=== PATIENT | female | born 1950 | race Caucasian/White ===

== ENCOUNTER 2017-11-16 09:25 | Day surgery (SDC) | payer MEDICARE ==
[~2017-11-16 09:25] MED LIST: ACETAMINOPHEN 325 MG TAB PO; PHENYLEPHRINE HCL 10 % OPHTH. SOL 5ML OS; PROPARACAINE 0.5% OPHTH SOL 15ML OS
[2017-11-16] MEDS: LIDOCAINE 3.5 % 1ML OPHTH TOPICAL GEL OU (09:50)
[2017-11-16] MEDS: PHENYLEPHRINE 2.5% OPHTH SOL 2ML OS (09:55)
[2017-11-16] MEDS: OFLOXACIN 0.3 % (OCUFLOX) OPTH SOL 5ML OS (09:55)
[2017-11-16] MEDS: TROPICAMIDE 1% OPHTH SOLN 2ML OS (09:55)
[2017-11-16] MEDS: CYCLOPENTOLATE 2% OPHTH SOLN 2ML BTL OS (09:55)
[2017-11-16] MEDS ORDERED: MIDAZOLAM INJ 2 MG/2 ML VIAL (J2250) As Ordered (11:04)
[2017-11-16] MEDS ORDERED: fentaNYL 100 MCG/2 ML INJECTION (J3010) As Ordered (11:04)
[2017-11-16] MEDS: HEALON DUET (HEALON 10MG/ML 0.55ML & HEALON ENDOCOAT 30MG/ML 0.85ML) As Ordered (11:05)
[2017-11-16] MEDS: LIDOCAINE 1% SDV 5 ML VIAL As Ordered (11:05)
[2017-11-16] MEDS: BALANCED SALT IRRIGATION SOLUTION 500ML BAG (FOR OR EYE MACHINE) As Ordered (11:05)
[2017-11-16] MEDS: POVIDONE-IODINE 5% OPHTH PREP SOL 30ML As Ordered (11:05)
[2017-11-16] MEDS ORDERED: AcetaZOLAMIDE 500 MG ER CAP As Ordered (11:41)
[2017-11-16] MEDS ORDERED: ONDANSETRON 4MG/2ML VIAL (J2405) IV (11:45)
[2017-11-16] MEDS: AcetaZOLAMIDE 500 MG ER CAP PO (11:45)
[2017-11-16] MEDS ORDERED: TRIMETHOBENZAMIDE 300 MG CAP PO (11:45)
[2017-11-16] MEDS ORDERED: KETOROLAC 0.5% OPHTH SOLN OS (11:45)
== END 2017-11-16 12:07 | disposition home or self-care (01) ==
LOC: M SDC 09:25
DX: H25.12 Age-related nuclear cataract, left eye (principal); I48.91 Unspecified atrial fibrillation; K21.9 Gastro-esophageal reflux disease without esophagitis; F41.9 Anxiety disorder, unspecified; Z79.899 Other long term (current) drug therapy; Z88.0 Allergy status to penicillin; Z88.5 Allergy status to narcotic agent
CPT/HCPCS: 66984